=== PATIENT | female | born 1980 | race Caucasian/White ===

== ENCOUNTER 2021-06-15 19:47 | Emergency (ER) | payer MEDICAID, OTHER ==
[~2021-06-15] VITALS: Ht 154.9 cm; Wt 118.4 kg
[2021-06-15 19:50] VITALS: BP 143/103
--- NOTE | 2021-06-15 19:59 | NUR ---
Rupal fernandes in ED - 06/15/21 at 2002 by USMAN patient to bed 4 ambulatory
--- NOTE | 2021-06-15 19:59 | NUR ---
patient ambulated to the bathroom for urine collection
[2021-06-15] MEDS ORDERED: NACL 0.9% 1,000 ML IV ONE ×2 (20:20)
--- NOTE | 2021-06-15 20:24 | NUR ---
AMBULATED TO BED 6
--- NOTE | 2021-06-15 20:43 | NUR ---
BLOOD SAMPLES SENT TO LAB
[2021-06-15 20:56] LABS: BASOPHILS % (AUTO) 0.4 % (0.0-2.0); EOSINOPHILS # (AUTO) 0.5 K/uL (0-0.4); EOSINOPHILS % (AUTO) 4.9 % (0.0-4.0); HEMATOCRIT 41.1 % (36-48); HEMOGLOBIN 13.9 g/dL (12.0-16.0); LYMPHOCYTES # (AUTO) 3.7 K/uL (2.5-16.5); LYMPHOCYTES % (AUTO) 35.7 % (20.5-51.1); MEAN CORPUSCULAR HEMOGLOBIN 30 pg (27-31); MEAN CORPUSCULAR HGB CONC 34 g/dL (33-37); MEAN CORPUSCULAR VOLUME 88.1 fL (80-94); MONOCYTES # (AUTO) 0.5 K/uL (0.8-1.0); NEUTROPHILS # (AUTO) 5.6 K/uL (1.8-7.7); PLATELET COUNT (AUTO) 291 K/uL (140-450); RED BLOOD CELL COUNT(AUTO) 4.66 MIL/uL (4.20-5.40); RED CELL DISTRIBUTION WIDTH 12.5 % (11.6-13.7); WHITE BLOOD COUNT (AUTO) 10.4 K/uL (4.8-10.8)
--- NOTE | 2021-06-15 21:03 | NUR ---
Dr. Hernandez examining patient.
[2021-06-15 21:06] LABS: ALBUMIN 3.4 g/dL (3.4-5.0); CARBON DIOXIDE 29.6 mmol/L (21-32); CREATININE 0.9 mg/dL (0.6-1.3); POTASSIUM 3.6 mmol/L (3.5-5.1); TOTAL BILIRUBIN 0.7 mg/dL (0.0-1.0)
--- NOTE | 2021-06-15 21:21 | NUR ---
ACCOMPANIED DR. WOODS FOR PELVIC EXAM. PT TOLERATED WELL. WET MOUNT SENT TO LAB.
[2021-06-15] MEDS ORDERED: POTASSIUM CHLORIDE 20% 40 MEQ/15 ML UDC PO ONE (21:25)
[2021-06-15] MEDS ORDERED: POTASSIUM CHL 20MEQ/D5-NS 1,000 ML IV ONE (21:25)
[2021-06-15 22:18] LABS: APPEARANCE,URINE CLEAR (CLEAR); BILIRUBIN,URINE NEGATIVE (NEGATIVE); BLOOD, URINE TRACE-L (NEGATIVE); LEUKOCYTE ESTERASE ,URINE NEGATIVE (NEGATIVE); NITRITE, URINE NEGATIVE (NEGATIVE); PH,URINE 6.5 (5.0-9.0); UGLUCOSE 3+ (NEGATIVE)
--- NOTE | 2021-06-15 22:27 | NUR ---
Ultrasound at bedside.
[2021-06-15 22:35] LABS: COLOR,URINE STRAW (YELLOW)
[2021-06-15 22:59] LABS: RBC,URINE 0-5 /HPF (0-5); WBC,URINE 0-5 /HPF (0-5); YEAST,URINE Few /HPF (None Seen)
[2021-06-16] MEDS ORDERED: INSULIN REGULAR, HUMAN 100 UNIT/ML VIAL SUBQ ONE (00:10)
--- NOTE | 2021-06-16 01:11 | NUR ---
Dr. Bonner examining patient.
[2021-06-16] MEDS ORDERED: INSU100I7 SQ (01:46)
[2021-06-16] MEDS ORDERED: LISI5TAB18 PO (01:46)
[2021-06-16] MEDS ORDERED: METF-1022 PO (01:46)
[2021-06-16] MEDS ORDERED: SIMV10TA92 PO (01:47)
[2021-06-16 01:56] VITALS: BP 135/70
[2021-06-16] MEDS ORDERED: FLUC150T PO (02:06)
--- NOTE | 2021-06-16 02:13 | NUR ---
Patient discharged with v/s stable. Written and verbal after care instructions given and explained. Patient alert, oriented and verbalized understanding of instructions. Ambulatory with steady gait. All questions addressed prior to discharge. ID band removed. Patient advised to follow up with PMD. Rx of FLUCONAZOLE, INSULIN GLARGINE, LISINOPRIL, METFORMIN, SIMVASTAIN given. Patient educated on indication of medication including possible reaction and side effects. Opportunity to ask questions provided and answered.
--- NOTE | 2021-06-17 12:57 | NUR ---
LATE ENTRY- IV NORMAL SALINE DISCONTINUED AT 0203.
== END 2021-06-16 02:13 | disposition home or self-care (01) ==
LOC: MED 19:47
DX: B37.9 Candidiasis, unspecified (principal); R74.01 Elevation of levels of liver transaminase levels; E11.65 Type 2 diabetes mellitus with hyperglycemia; K76.0 Fatty (change of) liver, not elsewhere classified; Z79.84 Long term (current) use of oral hypoglycemic drugs; Z79.899 Other long term (current) drug therapy
CPT/HCPCS: 36415; 76705; 80053; 81001; 81025; 82948; 84484; 85025; 87086; 96361; 96365; 96366; 96372; 99284; J1815; J7030; Q0092